=== PATIENT | male | born 1945 | race Caucasian/White ===

== ENCOUNTER 2023-11-10 11:39 | Outpatient (CLI) | payer MEDICARE, OTHER ==
[2023-11-10 13:04] LABS: Hematocrit 43.5 % (38.8-50.0); Hemoglobin 14.8 g/dL (13.5-17.5); Mean Corpuscular Hemoglobin 33.3 pg (27.0-33.0); Mean Platelet Volume 10.9 fl (7.4-10.4); Platelet Count 207 10x3/uL (150-450); RBC Distribution Width 12.7 % (11.5-14.5); Red Blood Cell (RBC) Count 4.44 10x6/uL (4.32-5.72); White Blood Cell (WBC) Count 7.5 10x3/uL (3.5-10.5)
[2023-11-10 13:11] LABS: INR-International Normal Ratio 1.1; Prothrombin Time 11.4 sec (9.5-12.1)
[2023-11-10 13:15] LABS: Anion Gap 12 mmol/L (10-20); BUN (Urea Nitrogen) 12 mg/dL (8.4-25.7); Calc. Creatinine Clearance 0 mL/min (70-130); Calcium 9.1 mg/dL (7.8-10.44); Carbon Dioxide 22 mmol/L (23-31); Chloride 109 mmol/L (98-107); Estimated GFR 90; Glucose 116 mg/dL (83-110); Potassium 4.2 mmol/L (3.5-5.1); Sodium 139 mmol/L (136-145)
[2023-11-10 20:00] LABS: Hemoglobin A1c 5.8 % (4.0-6.0)
== END 2023-11-10 11:40 | disposition home or self-care (01) ==
LOC: CSHLAB 11:39
PROVIDERS: ATTEND Orthopaedic Surgery
DX: Z01.818 Encounter for other preprocedural examination (principal); M16.12 Unilateral primary osteoarthritis, left hip; I51.7 Cardiomegaly
CPT/HCPCS: 80048; 82306; 83036; 85027; 85610; 87081; 93005; 93010

== ENCOUNTER 2023-11-24 14:28 | Emergency (ER) | payer MEDICARE, OTHER ==
[2023-11-24] MEDS ORDERED: Bacitracin 1 PK ONE (16:39)
== END 2023-11-24 16:43 | disposition home or self-care (01) ==
LOC: CSHERS 14:28
DX: Z48.00 Encounter for change or removal of nonsurgical wound dressing (principal); I10 Essential (primary) hypertension; Z79.899 Other long term (current) drug therapy
CPT/HCPCS: 70450; 72125

== ENCOUNTER 2024-08-09 04:34 | Emergency (ER) | payer OTHER ==
[2024-08-09] MEDS ORDERED: Lidocaine/Transparent Dressing 1 EACH KIT ONE (05:46)
== END 2024-08-09 07:14 | disposition home or self-care (01) ==
LOC: CSHERS 04:34
DX: S01.01XA Laceration without foreign body of scalp, initial encounter (principal); I10 Essential (primary) hypertension; W18.09XA Striking against other object with subsequent fall, initial encounter
CPT/HCPCS: 12004; 70450; 71045

== ENCOUNTER 2024-08-18 10:44 | Emergency (ER) | payer OTHER | END 2024-08-18 12:20 | disposition home or self-care (01) | LOC: CSHERS 10:44 | DX: S01.01XD Laceration without foreign body of scalp, subsequent encounter (principal); I10 Essential (primary) hypertension; W18.30XD Fall on same level, unspecified, subsequent encounter; Z86.73 Personal history of transient ischemic attack (TIA), and cerebral infarction without residual deficits ==